=== PATIENT | male | born 1995 | race African-American/Black ===

== ENCOUNTER 2025-06-19 17:44 | Emergency (ER) | payer OTHER, SELFPAY ==
[2025-06-19 17:59] VITALS: BP 110/62; PULSE 67; TEMP 36.6; O2SAT 100; BMI 28.6
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
--- OUTSIDE RECORDS SUMMARY | 2025-06-19 18:50 | XMS_ITS | Encounter Summary ---
Author Organization [facility] Address [address] [place] [address] Care Team Providers Care Park Activities Coordinator Name Role Phone Unavailable Primary Care Provider Unavailabl e Encounter Details Date Type Department Care Team (Latest Contact Info) Description 06/19/2025 Travel Social History Tobacco Use Types Packs/Day Years Used Date Smoking Tobacco: Never Assessed Sex and Gender Information Value Date Recorded Sex Assigned at Not on file Legal Sex Male 6:56 PM EDT Gender Identity Not on file Sexual Orientation Not on file documented as of this encounter Plan of Treatment Not on file documented as of this encounter Visit Diagnoses Not on filedocumented in this encounter
--- OUTSIDE RECORDS SUMMARY | 2025-06-19 18:50 | XMS_ITS | Clinical Summary ---
Author Organization [facility] Address [address] [place] [address] Care Team Providers Care Can Line Examiner Name Role Phone Unavailable Primary Care Provider Unavailabl e Allergies No known active allergies Medications amphetamine-dext roamphetamine (Adderall) 20 MG tablet Take 20 mg by mouth Daily 05/10/2024 Active amphetamine-dext roamphetamine (Adderall) 30 MG tablet Take 30 mg by mouth Daily 05/10/2024 Active Encounters Date Type Department Care Team Description 06/19/2025 Travel from Last 3 Months Social History Tobacco Use Types Packs/Day Years Used Date Smoking Tobacco: Never Assessed Sex and Gender Information Value Date Recorded Sex Assigned at Not on file Legal Sex Male 6:56 PM EDT Gender Identity Not on file Sexual Orientation Not on file Plan of Treatment Not on file Insurance [employer]
[2025-06-19 19:17] VITALS: BP 105/68; PULSE 73; O2SAT 100
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
--- NOTE | 2025-06-19 20:29 | ED_ITS ---
<Statement entered by SONY TORRES II - 06/20/25 21:55> duplicate chart/ please delete HPI HPI - General Adult General Chief complaint: Extremity Injury, Upper Stated complaint: UPPER EXTREMITY INJURY 06/17/2025 Time Seen by Provider: 06/19/25 19:27 Related Data Previous Rx's ?Medication ?Instructions ?Recorded ibuprofen 800 mg tablet 800 mg PO Q8H PRN shoulder p ain 06/19/25 #20 tabs tizanidine 4 mg capsule 4 mg PO Q12H PRN muscle spas ticity 06/19/25 #14 caps Allergies Allergy/AdvReac Type Severity Reaction Status Date / Time No Known Drug Allergies Allergy Verified 06/19/25 18:04 Opioid HPI Opioid Management Most Recent Opioid Data: Last Pain Scale 6 Today, 17:59 PFSH PFSH Social History Little interest or pleasure in doing things: not at all Feeling down, depressed, or hopeless: not at all Exam Constitutional Vital Signs, click to edit/add: Last Vital Signs Temp 97.9 F 06/19/25 17:59 Pulse 73 06/19/25 19:17 Resp 20 06/19/25 19:17 BP 105/68 06/19/25 19:17 Pulse Ox 100 06/19/25 19:17 O2 Del Method Room Air 06/19/25 19:17 Course Vital Signs Vital signs: Vital Signs Temperature 97.9 F 06/19/25 17:59 Pulse Rate 67 06/19/25 17:59 Respiratory Rate 16 06/19/25 17:59 Blood Pressure 110/62 06/19/25 17:59 Pulse Oximetry 100 06/19/25 17:59 Oxygen Delivery Method Room Air 06/19/25 17:59 Temperature 97.9 F 06/19/25 17:59 Pulse Rate 73 06/19/25 19:17 Respiratory Rate 20 06/19/25 19:17 Blood Pressure 105/68 06/19/25 19:17 Pulse Oximetry 100 06/19/25 19:17 Oxygen Delivery Method Room Air 06/19/25 19:17 Discharge Plan Discharge Stand Alone Forms: Work/School Release Chief Complaint: Extremity Injury, Upper Clinical Impression: Muscle spasm Shoulder sprain Qualifiers: Encounter type: initial encounter Shoulder sprain type: unspecified sprain Laterality: right Qualified Code(s): S43.401A - Unspecified sprain of right shoulder joint, initial encounter Patient Disposition: Home, Self-Care Time of Disposition Decision: 20:25 Condition: Good Mode of Transportation: Private Vehicle Prescriptions / Home Meds: New ibuprofen 800 mg tablet 800 mg PO Q8H PRN (Reason: shoulder pain) Qty: 20 0RF tizanidine 4 mg capsule 4 mg PO Q12H PRN (Reason: muscle spasticity) Qty: 14 0RF Print Language: Moldovan Instructions: How to Use a Sling (ED), Shoulder Sprain (ED), Muscle Spasm (ED) Additional Instructions: Do not drive or operate equipment taking medication including tizanidine as it may cause drowsiness return to if any symptoms worsen or new symptoms develop. Referrals: RICO BAIRD [Physician, Orthopedics] - 1 week CINDA PENDLETON [Primary Care Provider, Family Practice] - 1 week
== END 2025-06-19 20:53 | disposition home or self-care (01) ==
PROVIDERS: Emergency Provider Emergency Medicine; PCP Family Medicine
DX: M62.838 Other muscle spasm (principal); S43.401A Unspecified sprain of right shoulder joint, initial encounter; M25.511 Pain in right shoulder
CPT/HCPCS: 71046; 73030; 99283